=== PATIENT | male | born 1995 | race Two or more races ===

== ENCOUNTER 2018-05-28 16:05 | Emergency (ER) | payer OTHER ==
[~2018-05-28] VITALS: Ht 170.2 cm; Wt 90.7 kg
[2018-05-28 16:14] VITALS: BP 128/88
[2018-05-28] MEDS ORDERED: IBUPROFEN 400 MG TABLET ONE (16:41)
--- NOTE | 2018-05-28 16:49 | NUR ---
No obvious distress. No acute changes. After care instructions given to [employer] officers. OK to Book.
[2018-05-28] MEDS ORDERED: IBUPROFEN 400 MG TABLET PO ONE (17:00)
== END 2018-05-28 16:52 ==
LOC: ER 16:15
DX: S90.422A Blister (nonthermal), left great toe, initial encounter (principal); S90.425A Blister (nonthermal), left lesser toe(s), initial encounter; L08.9 Local infection of the skin and subcutaneous tissue, unspecified; F20.9 Schizophrenia, unspecified; F15.10 Other stimulant abuse, uncomplicated; F31.9 Bipolar disorder, unspecified; F10.10 Alcohol abuse, uncomplicated; Y90.9 Presence of alcohol in blood, level not specified; Z59.0 Homelessness; Z02.89 Encounter for other administrative examinations; X58.XXXA Exposure to other specified factors, initial encounter; Y93.89 Activity, other specified; Y92.89 Other specified places as the place of occurrence of the external cause; Y99.8 Other external cause status
CPT/HCPCS: 99283; A4606